=== PATIENT | male | born 1970 | race Caucasian/White ===

== ENCOUNTER 2017-05-14 05:46 | Emergency (ER) | payer OTHER ==
[2017-05-14 06:41] VITALS: BP 146/96
== END 2017-05-14 06:41 | disposition home or self-care (01) ==
LOC: ED 05:46
DX: L73.2 Hidradenitis suppurativa (principal)

== ENCOUNTER 2018-03-04 23:26 | Emergency (ER) | payer OTHER ==
[~2018-03-04] VITALS: Ht 180.3 cm; Wt 99.3 kg
[2018-03-04 23:32] VITALS: Ht 180.3 cm; Wt 99.3 kg
[2018-03-05 01:34] VITALS: BP 130/101
== END 2018-03-05 01:34 | disposition home or self-care (01) ==
LOC: ED 23:26
DX: R21 Rash and other nonspecific skin eruption (principal); R03.0 Elevated blood-pressure reading, without diagnosis of hypertension
CPT/HCPCS: J7512

== ENCOUNTER 2018-03-09 03:23 | Emergency (ER) | payer OTHER ==
[~2018-03-09] VITALS: Ht 180.3 cm; Wt 100.8 kg
[2018-03-09 03:33] VITALS: Ht 180.3 cm; Wt 100.8 kg
[2018-03-09 06:14] VITALS: BP 137/80
== END 2018-03-09 06:14 | disposition home or self-care (01) ==
LOC: ED 03:23
DX: L29.9 Pruritus, unspecified (principal)

== ENCOUNTER 2018-11-06 23:13 | Emergency (ER) | payer OTHER ==
[~2018-11-06] VITALS: Ht 180.3 cm; Wt 94.3 kg
[2018-11-06 23:54] VITALS: Ht 180.3 cm; Wt 94.3 kg
[2018-11-07 00:36] VITALS: BP 134/70
== END 2018-11-07 00:36 | disposition home or self-care (01) ==
LOC: ED 23:13
DX: L73.9 Follicular disorder, unspecified (principal)

== ENCOUNTER 2019-02-08 02:13 | Emergency (ER) | payer OTHER ==
[~2019-02-08] VITALS: Ht 180.3 cm; Wt 94.8 kg
[2019-02-08 02:22] VITALS: Ht 180.3 cm; Wt 94.8 kg
[2019-02-08 02:54] VITALS: BP 142/76
== END 2019-02-08 02:54 | disposition home or self-care (01) ==
LOC: ED 02:13
DX: L73.2 Hidradenitis suppurativa (principal)

== ENCOUNTER 2019-04-30 01:50 | Emergency (ER) | payer OTHER ==
[~2019-04-30] VITALS: Ht 180.3 cm; Wt 97.5 kg
[2019-04-30 01:57] VITALS: Ht 180.3 cm; Wt 97.5 kg
[2019-04-30 06:10] VITALS: BP 147/98
[2019-05-01 04:06] LABS: RAPID PLASMA REAGIN Non Reactive (Non Reactive)
== END 2019-04-30 06:10 | disposition home or self-care (01) ==
LOC: ED 01:50
PROVIDERS: Emergency Medicine
DX: A64 Unspecified sexually transmitted disease (principal)
CPT/HCPCS: 87491; 87591; J0696

== ENCOUNTER 2019-07-06 00:28 | Emergency (ER) | payer OTHER ==
[~2019-07-06] VITALS: Ht 180.3 cm; Wt 96.7 kg
[2019-07-06 02:46] VITALS: BP 136/68
== END 2019-07-06 02:46 | disposition home or self-care (01) ==
LOC: ED 00:28
DX: S42.002A Fracture of unspecified part of left clavicle, initial encounter for closed fracture (principal); W05.1XXA Fall from non-moving nonmotorized scooter, initial encounter; Y93.89 Activity, other specified; Y92.89 Other specified places as the place of occurrence of the external cause; Y99.8 Other external cause status
CPT/HCPCS: 90715; J1885

== ENCOUNTER 2019-08-24 00:03 | Emergency (ER) | payer OTHER ==
[~2019-08-24] VITALS: Ht 154.9 cm; Wt 99.5 kg
[2019-08-24 00:06] VITALS: Ht 154.9 cm; Wt 99.5 kg
[2019-08-24 00:50] VITALS: BP 156/108
== END 2019-08-24 00:54 | disposition home or self-care (01) ==
LOC: ED 00:03
DX: J34.89 Other specified disorders of nose and nasal sinuses (principal); R09.89 Other specified symptoms and signs involving the circulatory and respiratory systems

== ENCOUNTER 2019-09-25 02:42 | Emergency (ER) | payer OTHER ==
[~2019-09-25] VITALS: Ht 180.3 cm; Wt 113.9 kg
[2019-09-25 02:52] VITALS: BP 154/106; Ht 180.3 cm; Wt 113.9 kg
== END 2019-09-25 04:25 | disposition home or self-care (01) ==
LOC: ED 02:42
DX: L03.113 Cellulitis of right upper limb (principal); Z20.2 Contact with and (suspected) exposure to infections with a predominantly sexual mode of transmission; F17.200 Nicotine dependence, unspecified, uncomplicated
CPT/HCPCS: 99406; J0696

== ENCOUNTER 2019-09-27 00:38 | Emergency (ER) | payer OTHER ==
[~2019-09-27] VITALS: Ht 180.3 cm; Wt 97.5 kg
[2019-09-27 00:41] VITALS: Ht 180.3 cm; Wt 97.5 kg
[2019-09-27 01:59] LABS: microscopic required? YES; urine erythrocyte 1+ (NEGATIVE)
[2019-09-27 02:05] VITALS: BP 143/102
[2019-09-28 04:06] LABS: RAPID PLASMA REAGIN Non Reactive (Non Reactive)
== END 2019-09-27 02:05 | disposition home or self-care (01) ==
LOC: ED 00:38
PROVIDERS: Emergency Medicine
DX: R30.0 Dysuria (principal); R21 Rash and other nonspecific skin eruption; I10 Essential (primary) hypertension; F17.200 Nicotine dependence, unspecified, uncomplicated; L03.113 Cellulitis of right upper limb; Z71.6 Tobacco abuse counseling
CPT/HCPCS: 87491; 87591; 99406

== ENCOUNTER 2019-10-02 03:29 | Emergency (ER) | payer OTHER ==
[~2019-10-02] VITALS: Ht 180.3 cm; Wt 98.6 kg
[2019-10-02 03:33] VITALS: Ht 180.3 cm; Wt 98.6 kg
[2019-10-02 04:48] VITALS: BP 135/96
== END 2019-10-02 04:48 | disposition home or self-care (01) ==
LOC: ED 03:29
DX: Z13.9 Encounter for screening, unspecified (principal)

== ENCOUNTER 2019-11-29 02:56 | Emergency (ER) | payer OTHER ==
[~2019-11-29] VITALS: Ht 180.3 cm; Wt 98.9 kg
[2019-11-29 03:06] VITALS: Ht 180.3 cm; Wt 98.9 kg
[2019-11-29 05:47] VITALS: BP 151/99
== END 2019-11-29 05:47 | disposition home or self-care (01) ==
LOC: ED 02:56
DX: L25.9 Unspecified contact dermatitis, unspecified cause (principal)
CPT/HCPCS: J1100; Q0163

== ENCOUNTER 2020-05-11 14:27 | Emergency (ER) | payer OTHER, SELFPAY ==
[~2020-05-11] VITALS: Ht 180.3 cm; Wt 95.3 kg
[2020-05-11 14:28] VITALS: Ht 180.3 cm; Wt 95.3 kg
[2020-05-11 16:40] VITALS: BP 140/85
== END 2020-05-11 17:05 | disposition home or self-care (01) ==
LOC: ED 14:27
DX: B34.9 Viral infection, unspecified (principal); R03.0 Elevated blood-pressure reading, without diagnosis of hypertension; F17.210 Nicotine dependence, cigarettes, uncomplicated; Z20.828 Contact with and (suspected) exposure to other viral communicable diseases
CPT/HCPCS: U0003-CS